=== PATIENT | female | born 1960 | race African-American/Black ===

== ENCOUNTER → 2020-10-20 | Outpatient (CLI) | payer BC ==
[2020-10-20 16:17] LABS: ALBUMIN 3.9 GM/DL (3.2-5.2); ALT/SGPT 36 U/L (12-78); BILIRUBIN,DIRECT < 0.1 MG/DL (0.0-0.2); BILIRUBIN,TOTAL 0.2 MG/DL (0.2-1.0); TOTAL PROTEIN 6.7 GM/DL (6.4-8.2)
[2020-10-20 16:31] LABS: EOS # 0.3 10^3/uL (0.0-0.5); EOS % 6.8 % (0.0-3.0); HEMATOCRIT 37.7 % (36.0-47.0); HEMOGLOBIN 11.8 g/dl (12.0-15.5); LYMPH # 1.8 10^3/uL (1.5-5.0); LYMPH % 47.7 % (24.0-44.0); MEAN CORPUSCULAR HEMOGLOBIN 29.3 pg (27.0-33.0); MEAN CORPUSCULAR HGB CONC 31.3 g/dl (32.0-36.5); MEAN CORPUSCULAR VOLUME 93.5 fl (80.0-96.0); MONO # 0.3 10^3/uL (0.0-0.8); MONO % 6.8 % (2.0-8.0); NEUTROPHILS # 1.5 10^3/uL (1.5-8.5); NEUTROPHILS % 37.7 % (36.0-66.0); PLATELET COUNT, AUTOMATED 159 10^3/uL (150-450); RED BLOOD COUNT 4.03 10^6/uL (4.00-5.40); WHITE BLOOD COUNT 3.8 10^3/uL (4.0-10.0)
== END ==
LOC: M WUC 10:13
PROVIDERS: ATTEND Podiatrist Foot & Ankle Surgery
DX: B35.1 Tinea unguium (principal)

== ENCOUNTER → 2021-12-21 | Outpatient (CLI) | payer BC ==
[2021-12-21 14:37] LABS: HEMATOCRIT 36.2 % (36.0-47.0); MEAN CORPUSCULAR HEMOGLOBIN 31.1 pg (27.0-33.0); MEAN CORPUSCULAR HGB CONC 33.1 g/dl (32.0-36.5); MEAN CORPUSCULAR VOLUME 93.8 fl (80.0-96.0); PLATELET COUNT, AUTOMATED 201 10^3/uL (150-450); RED BLOOD COUNT 3.86 10^6/uL (4.00-5.40); WHITE BLOOD COUNT 4.9 10^3/uL (4.0-10.0)
[2021-12-21 15:15] LABS: ALT/SGPT 32 U/L (12-78); BILIRUBIN,TOTAL 0.2 MG/DL (0.2-1.0); BLOOD UREA NITROGEN 16 MG/DL (7-18); CARBON DIOXIDE LEVEL 28 MEQ/L (21-32); CHLORIDE LEVEL 108 MEQ/L (98-107); CHOLESTEROL LEVEL 173 MG/DL (<200); CHOLESTEROL RISK RATIO 2.337 (<5); CREATININE FOR GFR 0.91 MG/DL (0.55-1.30); GLOMERULAR FILTRATION RATE > 60.0 (>45); GLUCOSE, FASTING 105 MG/DL (70-100); HDL CHOLESTEROL 74 MG/DL (>40); IRON (FE) 41 UG/DL (50-170); LDL CHOLESTEROL 85 MG/DL (<100); NON-HDL-C 99 MG/DL; PERCENT SATURATION 9.9 % (13.2-45.0); POTASSIUM SERUM 3.5 MEQ/L (3.5-5.1); SODIUM LEVEL 140 MEQ/L (136-145); THYROID STIMULATING HORMONE 0.563 uIU/ML (0.358-3.740); TOTAL IRON BINDING CAPACITY 416 UG/DL (250-450); TOTAL PROTEIN 6.7 GM/DL (6.4-8.2); TRIGLYCERIDES LEVEL 68 MG/DL (<150)
[2021-12-21 15:41] LABS: TOTAL 25(OH) VITAMIN D 44.4 NG/ML (30.0-100.0); VITAMIN B12 LEVEL > 2000 PG/ML (247-911)
[2021-12-21 16:01] LABS: HEMOGLOBIN A1c 5.5 %
== END ==
LOC: M WUC 11:22
PROVIDERS: ATTEND Family Medicine
DX: I10 Essential (primary) hypertension (principal); R53.83 Other fatigue; E03.9 Hypothyroidism, unspecified; D64.9 Anemia, unspecified

== ENCOUNTER 2022-07-28 10:19 | Inpatient (IN) | payer BC ==
[~2022-07-28] VITALS: Ht 152.4 cm; Wt 54.5 kg
[2022-07-28] MEDS ORDERED: NS 1,000 ML IV ONE ×2 (10:45→17:00)
[2022-07-28] MEDS ORDERED: LORazepam 2 MG/ML 1ML VIAL IV STA ×2 (11:04→11:20)
[2022-07-28 11:05] LABS: BASO % 0.5 % (0.0-1.0); EOS # 0.1 10^3/uL (0.0-0.5); HEMATOCRIT 39.2 % (36.0-47.0); HEMOGLOBIN 12.3 g/dl (12.0-15.5); LYMPH # 0.8 10^3/uL (1.5-5.0); LYMPH % 12.9 % (24.0-44.0); MEAN CORPUSCULAR HEMOGLOBIN 27.6 pg (27.0-33.0); MEAN CORPUSCULAR HGB CONC 31.4 g/dl (32.0-36.5); MEAN CORPUSCULAR VOLUME 88.1 fl (80.0-96.0); MONO # 0.2 10^3/uL (0.0-0.8); MONO % 4.1 % (2.0-8.0); NEUTROPHILS # 4.8 10^3/uL (1.5-8.5); PLATELET COUNT, AUTOMATED 284 10^3/uL (150-450); RED BLOOD COUNT 4.45 10^6/uL (4.00-5.40); WHITE BLOOD COUNT 5.9 10^3/uL (4.0-10.0)
[2022-07-28] MEDS ORDERED: THIAMINE 200MG 2ML VIAL IV ONE (11:10)
[2022-07-28 11:16] LABS: INR 0.84; PROTHROMBIN TIME 11.7 SECONDS (12.5-14.5)
[2022-07-28 11:17] LABS: PARTIAL THROMBOPLASTIN TIME 27.8 SECONDS (24.8-34.2)
[2022-07-28 11:35] LABS: ETHYL ALCOHOL (ETHANOL) 0.005 % (0.000-0.010); LIPASE 22 U/L (12-53)
[2022-07-28 11:37] LABS: CK-MB VALUE MASS < 1.0 NG/ML (<3.6); CPK CREATINE PHOSPHOKINASE 57 U/L (34-145); MB/CK RELATIVE INDEX 1.75 (< OR =4); SALICYLATE LEVEL < 3.0 MG/DL (<30)
[2022-07-28 11:38] LABS: ACETAMINOPHEN LEVEL < 2.0 UG/ML (10.0-20.0); ALBUMIN 4.1 G/DL (3.2-5.2); ALKALINE PHOSPHATASE 86 U/L (46-116); ALT/SGPT 18 U/L (7.0-40); AST/SGOT 14 U/L (<34); BILIRUBIN,DIRECT < 0.1 MG/DL (<0.4); BILIRUBIN,TOTAL 0.3 MG/DL (0.3-1.2); BLOOD UREA NITROGEN 15 MG/DL (9-23); CARBON DIOXIDE LEVEL 21 MMOL/L (20-31); CHLORIDE LEVEL 108 MMOL/L (98-107); CREATININE FOR GFR 0.99 MG/DL (0.55-1.30); GLOMERULAR FILTRATION RATE > 60.0 (>45); GLUCOSE, FASTING 142 MG/DL (74-106); MAGNESIUM LEVEL 1.8 MG/DL (1.8-2.4); POTASSIUM SERUM 3.7 MMOL/L (3.5-5.1); SODIUM LEVEL 139 MMOL/L (136-145); TOTAL PROTEIN 6.8 G/DL (5.7-8.2)
[2022-07-28] MEDS ORDERED: ONDANSETRON 4MG 2ML VIAL IV ONE (13:20)
[2022-07-28] MEDS ORDERED: LORazepam 2 MG TAB PO PRN (13:20)
[2022-07-28] MEDS ORDERED: RISP-8 PO (13:32)
[2022-07-28] MEDS ORDERED: ERGO500029 PO (13:32)
[2022-07-28] MEDS ORDERED: TIZA10TA PO (13:32)
[2022-07-28] MEDS ORDERED: TOPI-254 PO (13:32)
[2022-07-28] MEDS ORDERED: PREG200C PO (13:32)
[2022-07-28] MEDS ORDERED: FERR324T21 PO (13:32)
[2022-07-28] MEDS ORDERED: MIRT-11 PO (13:32)
[2022-07-28] MEDS ORDERED: SPIR-10 PO (13:32)
[2022-07-28] MEDS ORDERED: ZOLO100T PO (13:32)
[2022-07-28] MEDS ORDERED: BUSP15TA47 PO (13:32)
[2022-07-28] MEDS ORDERED: CLON1TAB8 PO (13:32)
[2022-07-28] MEDS ORDERED: HYDR-3719 PO (13:32)
[2022-07-28] MEDS ORDERED: PRAV40TA2 PO (13:32)
[2022-07-28] MEDS ORDERED: OMEP-173 PO (13:32)
[2022-07-28] MEDS ORDERED: HOME MED LIST COMPLETE! XX SCH (13:35)
[2022-07-28 13:51] LABS: RSV AMPLIFICATION NEGATIVE (NEGATIVE)
[2022-07-28 14:06] LABS: AMPHETAMINES LEVEL URINE NEGATIVE (NEGATIVE); BARBITURATES URINE NEGATIVE (NEGATIVE); COCAINE METABOLITE URINE NEGATIVE (NEGATIVE); METHADONE URINE NEGATIVE (NEGATIVE); OPIATES URINE NEGATIVE (NEGATIVE); PHENCYCLIDINE URINE NEGATIVE (NEGATIVE)
[2022-07-28 14:07] LABS: BENZODIAZEPINES URINE POSITIVE (NEGATIVE); CANNABINOIDS URINE POSITIVE (NEGATIVE)
[2022-07-28] MEDS ORDERED: ONDANSETRON 4MG 2ML VIAL IV PRN (14:40)
[2022-07-28] MEDS ORDERED: OXAZEPAM 10MG CAP PO ONE (14:40)
[2022-07-28] MEDS ORDERED: MULTIVITAMIN -ADULT INJECTION 10 ML, THIAMINE INJection 100 MG, FOLIC ACID 1 MG in NS 1... IV ONE (17:00)
[2022-07-28] MEDS: OXAZEPAM 15MG CAP PO SCH ×2 (17:28→23:24)
[2022-07-28 17:40] VITALS: BP 120/75
[2022-07-28 17:57] VITALS: BP 120/75
[2022-07-28] MEDS: PRAVASTATIN 20 MG TAB PO SCH (18:15)
[2022-07-28] MEDS: SERTRALINE 100 MG TAB PO SCH (18:16)
[2022-07-28] MEDS: SPIRONOLACTONE 25 MG TAB PO SCH (18:16)
[2022-07-28] MEDS: busPIRone 5 MG TAB PO SCH ×2 (18:16→20:28)
[2022-07-28] MEDS: FERROUS GLUCONATE 324 MG TAB PO SCH (18:28)
[2022-07-28 18:58] VITALS: BP 100/70
[2022-07-28 20:00] VITALS: BP 124/78
[2022-07-28] MEDS: TOPIRAMATE (TopAMAX) 25 MG TAB PO SCH (20:28)
[2022-07-28] MEDS: risperiDONE 1 MG TAB PO SCH (20:28)
[2022-07-28] MEDS: PREGABALIN 100 MG CAP (LYRICA) PO SCH (20:28)
[2022-07-28] MEDS: MIRTAZAPINE 15 MG TAB PO SCH (20:29)
[2022-07-28] MEDS: OMEPRAZOLE 20MG CAP PO SCH (20:29)
[2022-07-28] MEDS ORDERED: PANTOPRAZOLE 40MG TAB (PROTONIX) PO SCH (21:00)
[2022-07-28] MEDS ORDERED: THIAMINE 100 MG TAB PO SCH (21:00)
[2022-07-28 22:00] VITALS: BP_SYST 116; BP_SYST 124; BP_DIAS 73; BP_DIAS 78
[2022-07-29] VITALS (7 sets, daily range): BP systolic 113–143; BP diastolic 62–91
[2022-07-29] MEDS: OXAZEPAM 15MG CAP PO SCH ×4 (05:31→23:48)
[2022-07-29 07:14] LABS: BASO % 0.6 % (0.0-1.0); EOS # 0.1 10^3/uL (0.0-0.5); EOS % 1.9 % (0.0-3.0); HEMATOCRIT 33.9 % (36.0-47.0); HEMOGLOBIN 10.8 g/dl (12.0-15.5); LYMPH # 1.2 10^3/uL (1.5-5.0); LYMPH % 25.6 % (24.0-44.0); MEAN CORPUSCULAR HEMOGLOBIN 28.1 pg (27.0-33.0); MEAN CORPUSCULAR HGB CONC 31.9 g/dl (32.0-36.5); MEAN CORPUSCULAR VOLUME 88.1 fl (80.0-96.0); MONO # 0.3 10^3/uL (0.0-0.8); MONO % 6.1 % (2.0-8.0); NEUTROPHILS # 3.1 10^3/uL (1.5-8.5); NEUTROPHILS % 65.2 % (36.0-66.0); PLATELET COUNT, AUTOMATED 222 10^3/uL (150-450); RED BLOOD COUNT 3.85 10^6/uL (4.00-5.40); WHITE BLOOD COUNT 4.8 10^3/uL (4.0-10.0)
[2022-07-29 07:41] LABS: BLOOD UREA NITROGEN 9 MG/DL (9-23); CALCIUM LEVEL 8.2 MG/DL (8.3-10.6); CARBON DIOXIDE LEVEL 20 MMOL/L (20-31); CHLORIDE LEVEL 114 MMOL/L (98-107); CREATININE FOR GFR 0.77 MG/DL (0.55-1.30); GLOMERULAR FILTRATION RATE > 60.0 (>45); GLUCOSE, FASTING 100 MG/DL (74-106); POTASSIUM SERUM 3.8 MMOL/L (3.5-5.1); SODIUM LEVEL 144 MMOL/L (136-145)
[2022-07-29] MEDS ORDERED: MULTIVITAMINS/MINERALS THERAP 1 TAB PO SCH (09:00)
[2022-07-29] MEDS ORDERED: FOLIC ACID 1MG TAB PO SCH (09:00)
[2022-07-29] MEDS: PREGABALIN 100 MG CAP (LYRICA) PO SCH ×2 (09:22→20:07)
[2022-07-29] MEDS: TOPIRAMATE (TopAMAX) 25 MG TAB PO SCH ×2 (09:22→20:07)
[2022-07-29] MEDS: LORazepam 2 MG TAB PO PRN (09:22)
[2022-07-29] MEDS: THIAMINE 100 MG TAB PO SCH ×2 (09:22→20:08)
[2022-07-29] MEDS: PRAVASTATIN 20 MG TAB PO SCH (09:22)
[2022-07-29] MEDS: OMEPRAZOLE 20MG CAP PO SCH ×2 (09:22→20:07)
[2022-07-29] MEDS: SPIRONOLACTONE 25 MG TAB PO SCH (09:22)
[2022-07-29] MEDS: FOLIC ACID 1MG TAB PO SCH (09:22)
[2022-07-29] MEDS: MULTIVITAMINS/MINERALS THERAP 1 TAB PO SCH (09:22)
[2022-07-29] MEDS: busPIRone 5 MG TAB PO SCH ×3 (09:23→20:06)
[2022-07-29] MEDS: FERROUS GLUCONATE 324 MG TAB PO SCH (09:23)
[2022-07-29] MEDS: SERTRALINE 100 MG TAB PO SCH (09:23)
[2022-07-29] MEDS: MIRTAZAPINE 15 MG TAB PO SCH (20:07)
[2022-07-29] MEDS: risperiDONE 1 MG TAB PO SCH (20:08)
[2022-07-30] VITALS (8 sets, daily range): BP systolic 113–146; BP diastolic 71–101
[2022-07-30] MEDS: OXAZEPAM 15MG CAP PO SCH ×3 (05:20→21:52)
[2022-07-30 06:43] LABS: BASO % 0.3 % (0.0-1.0); EOS # 0.1 10^3/uL (0.0-0.5); EOS % 1.7 % (0.0-3.0); HEMATOCRIT 32.6 % (36.0-47.0); HEMOGLOBIN 10.5 g/dl (12.0-15.5); LYMPH # 1.6 10^3/uL (1.5-5.0); LYMPH % 24.1 % (24.0-44.0); MEAN CORPUSCULAR HEMOGLOBIN 28.3 pg (27.0-33.0); MEAN CORPUSCULAR HGB CONC 32.2 g/dl (32.0-36.5); MEAN CORPUSCULAR VOLUME 87.9 fl (80.0-96.0); MONO # 0.5 10^3/uL (0.0-0.8); NEUTROPHILS # 4.4 10^3/uL (1.5-8.5); NEUTROPHILS % 66.3 % (36.0-66.0); PLATELET COUNT, AUTOMATED 243 10^3/uL (150-450); RED BLOOD COUNT 3.71 10^6/uL (4.00-5.40); WHITE BLOOD COUNT 6.6 10^3/uL (4.0-10.0)
[2022-07-30 07:10] LABS: BLOOD UREA NITROGEN 12 MG/DL (9-23); CALCIUM LEVEL 8.7 MG/DL (8.3-10.6); CARBON DIOXIDE LEVEL 24 MMOL/L (20-31); CHLORIDE LEVEL 111 MMOL/L (98-107); CREATININE FOR GFR 0.68 MG/DL (0.55-1.30); GLOMERULAR FILTRATION RATE > 60.0 (>45); GLUCOSE, FASTING 104 MG/DL (74-106); POTASSIUM SERUM 3.2 MMOL/L (3.5-5.1); SODIUM LEVEL 144 MMOL/L (136-145)
[2022-07-30] MEDS: OMEPRAZOLE 20MG CAP PO SCH ×2 (08:11→20:08)
[2022-07-30] MEDS: SERTRALINE 100 MG TAB PO SCH (08:11)
[2022-07-30] MEDS: PREGABALIN 100 MG CAP (LYRICA) PO SCH ×2 (08:11→20:08)
[2022-07-30] MEDS: busPIRone 5 MG TAB PO SCH ×3 (08:11→20:09)
[2022-07-30] MEDS: TOPIRAMATE (TopAMAX) 25 MG TAB PO SCH ×2 (08:11→20:09)
[2022-07-30] MEDS: FERROUS GLUCONATE 324 MG TAB PO SCH (08:11)
[2022-07-30] MEDS: PRAVASTATIN 20 MG TAB PO SCH (08:11)
[2022-07-30] MEDS: MULTIVITAMINS/MINERALS THERAP 1 TAB PO SCH (08:11)
[2022-07-30] MEDS: FOLIC ACID 1MG TAB PO SCH (08:12)
[2022-07-30] MEDS: THIAMINE 100 MG TAB PO SCH ×2 (08:12→20:08)
[2022-07-30] MEDS: SPIRONOLACTONE 25 MG TAB PO SCH (08:12)
[2022-07-30] MEDS ORDERED: POTASSIUM CHLORIDE 10MEQ SR TABLET PO ONE (08:30)
[2022-07-30] MEDS ORDERED: THIA100TA PO (11:02)
[2022-07-30] MEDS ORDERED: LORA2TA PO (11:02)
[2022-07-30] MEDS ORDERED: OXAZ15CA4 PO (11:02)
[2022-07-30] MEDS ORDERED: FOLI1TAB11 PO (11:02)
[2022-07-30] MEDS: LORazepam 2 MG TAB PO PRN ×2 (11:05→13:11)
[2022-07-30] MEDS: risperiDONE 1 MG TAB PO SCH (20:08)
[2022-07-30] MEDS: MIRTAZAPINE 15 MG TAB PO SCH (20:08)
[2022-07-31] MEDS: OXAZEPAM 15MG CAP PO SCH ×2 (05:39→14:45)
[2022-07-31 06:00] VITALS: BP 121/88
[2022-07-31 06:12] VITALS: BP 121/88
[2022-07-31 06:13] LABS: BASO % 0.6 % (0.0-1.0); EOS # 0.1 10^3/uL (0.0-0.5); EOS % 2.5 % (0.0-3.0); HEMATOCRIT 33.1 % (36.0-47.0); HEMOGLOBIN 10.6 g/dl (12.0-15.5); LYMPH # 1.4 10^3/uL (1.5-5.0); LYMPH % 28.4 % (24.0-44.0); MEAN CORPUSCULAR HEMOGLOBIN 28.1 pg (27.0-33.0); MEAN CORPUSCULAR VOLUME 87.8 fl (80.0-96.0); MONO # 0.4 10^3/uL (0.0-0.8); MONO % 7.7 % (2.0-8.0); NEUTROPHILS # 2.9 10^3/uL (1.5-8.5); NEUTROPHILS % 60.4 % (36.0-66.0); PLATELET COUNT, AUTOMATED 242 10^3/uL (150-450); RED BLOOD COUNT 3.77 10^6/uL (4.00-5.40); WHITE BLOOD COUNT 4.8 10^3/uL (4.0-10.0)
[2022-07-31 06:48] LABS: BLOOD UREA NITROGEN 16 MG/DL (9-23); CALCIUM LEVEL 8.5 MG/DL (8.3-10.6); CARBON DIOXIDE LEVEL 22 MMOL/L (20-31); CHLORIDE LEVEL 110 MMOL/L (98-107); CREATININE FOR GFR 0.58 MG/DL (0.55-1.30); GLOMERULAR FILTRATION RATE > 60.0 (>45); GLUCOSE, FASTING 114 MG/DL (74-106); POTASSIUM SERUM 3.7 MMOL/L (3.5-5.1); SODIUM LEVEL 142 MMOL/L (136-145)
[2022-07-31] MEDS: FERROUS GLUCONATE 324 MG TAB PO SCH (08:25)
[2022-07-31] MEDS: busPIRone 5 MG TAB PO SCH ×2 (08:25→15:56)
[2022-07-31] MEDS: SERTRALINE 100 MG TAB PO SCH (08:25)
[2022-07-31] MEDS: FOLIC ACID 1MG TAB PO SCH (08:25)
[2022-07-31] MEDS: THIAMINE 100 MG TAB PO SCH (08:25)
[2022-07-31] MEDS: TOPIRAMATE (TopAMAX) 25 MG TAB PO SCH (08:26)
[2022-07-31] MEDS: SPIRONOLACTONE 25 MG TAB PO SCH (08:26)
[2022-07-31] MEDS: LORazepam 2 MG TAB PO PRN (08:26)
[2022-07-31] MEDS: PREGABALIN 100 MG CAP (LYRICA) PO SCH (08:26)
[2022-07-31] MEDS: OMEPRAZOLE 20MG CAP PO SCH (08:26)
[2022-07-31] MEDS: MULTIVITAMINS/MINERALS THERAP 1 TAB PO SCH (08:26)
[2022-07-31] MEDS: PRAVASTATIN 20 MG TAB PO SCH (08:26)
[2022-07-31 10:00] VITALS: BP 121/89
== END 2022-07-31 16:40 | DRG 775 ==
LOC: M ED 10:19 → M ED INP 14:38 → M MSPAV 17:39
PROVIDERS: ADMIT Internal Medicine Nephrology; ATTEND Internal Medicine
DX: F10.239 Alcohol dependence with withdrawal, unspecified (principal); F32.A Depression, unspecified; F41.1 Generalized anxiety disorder; F43.10 Post-traumatic stress disorder, unspecified; E78.5 Hyperlipidemia, unspecified; F43.81 Prolonged grief disorder; K21.9 Gastro-esophageal reflux disease without esophagitis; Z83.3 Family history of diabetes mellitus; F17.290 Nicotine dependence, other tobacco product, uncomplicated; Z79.899 Other long term (current) drug therapy; Z20.822 Contact with and (suspected) exposure to COVID-19; Z98.84 Bariatric surgery status; Z90.79 Acquired absence of other genital organ(s); Z90.49 Acquired absence of other specified parts of digestive tract

== ENCOUNTER 2022-07-31 14:17 | Inpatient (IN) | payer BC ==
[~2022-07-31] VITALS: Ht 152.4 cm; Wt 54.5 kg
[~2022-07-31 14:17] MED LIST: BUSP15TA47 PO; CLON1TAB8 PO; ERGO500029 PO; FERR324T21 PO; FOLI1TAB11 PO; HYDR-3719 PO; LORA2TA PO; MIRT-11 PO; OMEP-173 PO; OXAZ15CA4 PO; PRAV40TA2 PO; PREG200C PO; RISP-8 PO; SPIR-10 PO; THIA100TA PO; TIZA10TA PO; TOPI-254 PO; ZOLO100T PO
[2022-07-31] MEDS ORDERED: traZODone 50 MG TAB PO PRN (14:55)
[2022-07-31] MEDS ORDERED: MAALOX 30 ML SUSP *UDC PO PRN (14:55)
[2022-07-31] MEDS ORDERED: ACETAMINOPHEN TAB 650MG DOSE (2X325MG) PO PRN (14:55)
[2022-07-31] MEDS ORDERED: MOM 30ML SUSPENSION UDC PO PRN (14:55)
[2022-07-31] MEDS ORDERED: HOME MED LIST COMPLETE! XX SCH (15:20)
[2022-07-31 17:13] VITALS: BP 115/72
[2022-07-31] MEDS: NICOTINE 21MG/24HR 1 EA TRANSDERMAL TD SCH (18:09)
[2022-07-31] MEDS: OLANZapine ORAL DISINTEGRATING TAB 5MG PO PRN (18:14)
[2022-07-31] MEDS: busPIRone 5 MG TAB PO SCH (20:20)
[2022-07-31] MEDS: TOPIRAMATE (TopAMAX) 25 MG TAB PO SCH (20:21)
[2022-07-31] MEDS: PREGABALIN 100 MG CAP (LYRICA) PO SCH (20:21)
[2022-07-31] MEDS: THIAMINE 100 MG TAB PO SCH (20:21)
[2022-07-31] MEDS: OMEPRAZOLE 20MG CAP PO SCH (20:21)
[2022-07-31] MEDS ORDERED: risperiDONE 1 MG TAB PO SCH (21:00)
[2022-07-31] MEDS: MIRTAZAPINE 15 MG TAB PO SCH (21:12)
[2022-07-31] MEDS: OXAZEPAM 15MG CAP PO SCH (21:12)
[2022-08-01] MEDS: OXAZEPAM 15MG CAP PO SCH ×3 (06:13→21:38)
[2022-08-01 06:43] VITALS: BP 149/90
[2022-08-01] MEDS: SPIRONOLACTONE 25 MG TAB PO SCH (08:44)
[2022-08-01] MEDS: FERROUS SULFATE 325MG TAB PO SCH (08:45)
[2022-08-01] MEDS: PREGABALIN 100 MG CAP (LYRICA) PO SCH ×2 (08:45→20:21)
[2022-08-01] MEDS: SERTRALINE 100 MG TAB PO SCH (08:45)
[2022-08-01] MEDS: busPIRone 5 MG TAB PO SCH ×3 (08:45→20:22)
[2022-08-01] MEDS: FOLIC ACID 1MG TAB PO SCH (08:45)
[2022-08-01] MEDS: OMEPRAZOLE 20MG CAP PO SCH ×2 (08:45→20:22)
[2022-08-01] MEDS: NICOTINE 21MG/24HR 1 EA TRANSDERMAL TD SCH (08:46)
[2022-08-01] MEDS: TOPIRAMATE (TopAMAX) 25 MG TAB PO SCH ×2 (08:47→20:22)
[2022-08-01] MEDS: THIAMINE 100 MG TAB PO SCH (08:47)
[2022-08-01] MEDS: PRAVASTATIN 20 MG TAB PO SCH (10:04)
[2022-08-01] MEDS ORDERED: tiZANidine 4 MG TAB PO PRN (13:40)
[2022-08-01] MEDS: NORCO, ANEXSIA 5/325MG TABLET (HYDROcodone/ACETAMINOPHEN) PO PRN ×2 (14:13→20:22)
[2022-08-01 16:22] VITALS: BP 138/90
[2022-08-01] MEDS: risperiDONE 2 MG TAB PO SCH (21:38)
[2022-08-01] MEDS: MIRTAZAPINE 15 MG TAB PO SCH (21:38)
[2022-08-02 05:49] VITALS: BP 125/73
[2022-08-02] MEDS: OXAZEPAM 15MG CAP PO SCH ×3 (05:58→21:52)
[2022-08-02] MEDS: THIAMINE 100 MG TAB PO SCH (08:28)
[2022-08-02] MEDS: FOLIC ACID 1MG TAB PO SCH (08:28)
[2022-08-02] MEDS: TOPIRAMATE (TopAMAX) 25 MG TAB PO SCH ×2 (08:28→21:53)
[2022-08-02] MEDS: SERTRALINE 100 MG TAB PO SCH (08:29)
[2022-08-02] MEDS: SPIRONOLACTONE 25 MG TAB PO SCH (08:29)
[2022-08-02] MEDS: FERROUS SULFATE 325MG TAB PO SCH (08:29)
[2022-08-02] MEDS: busPIRone 5 MG TAB PO SCH ×3 (08:30→21:53)
[2022-08-02] MEDS: PRAVASTATIN 20 MG TAB PO SCH (08:30)
[2022-08-02] MEDS: OMEPRAZOLE 20MG CAP PO SCH ×2 (08:30→21:53)
[2022-08-02] MEDS: OLANZapine ORAL DISINTEGRATING TAB 5MG PO PRN (08:31)
[2022-08-02] MEDS: PREGABALIN 100 MG CAP (LYRICA) PO SCH ×2 (08:31→21:53)
[2022-08-02] MEDS: NICOTINE 21MG/24HR 1 EA TRANSDERMAL TD SCH (08:34)
[2022-08-02] MEDS: NORCO, ANEXSIA 5/325MG TABLET (HYDROcodone/ACETAMINOPHEN) PO PRN ×2 (17:13→23:21)
[2022-08-02 18:14] VITALS: BP 135/85
[2022-08-02] MEDS: MIRTAZAPINE 15 MG TAB PO SCH (21:53)
[2022-08-02] MEDS: risperiDONE 2 MG TAB PO SCH (21:53)
[2022-08-03 07:11] VITALS: BP 131/82
[2022-08-03] MEDS: TOPIRAMATE (TopAMAX) 25 MG TAB PO SCH (08:31)
[2022-08-03] MEDS: OMEPRAZOLE 20MG CAP PO SCH (08:32)
[2022-08-03] MEDS: busPIRone 5 MG TAB PO SCH (08:32)
[2022-08-03] MEDS: FOLIC ACID 1MG TAB PO SCH (08:32)
[2022-08-03] MEDS: SERTRALINE 100 MG TAB PO SCH (08:33)
[2022-08-03] MEDS: FERROUS SULFATE 325MG TAB PO SCH (08:33)
[2022-08-03] MEDS: PREGABALIN 100 MG CAP (LYRICA) PO SCH (08:33)
[2022-08-03] MEDS: THIAMINE 100 MG TAB PO SCH (08:33)
[2022-08-03] MEDS: PRAVASTATIN 20 MG TAB PO SCH (08:34)
[2022-08-03] MEDS: SPIRONOLACTONE 25 MG TAB PO SCH (08:34)
[2022-08-03] MEDS: OLANZapine ORAL DISINTEGRATING TAB 5MG PO PRN (08:34)
[2022-08-03] MEDS: NICOTINE 21MG/24HR 1 EA TRANSDERMAL TD SCH (08:37)
[2022-08-03] MEDS ORDERED: RISP-9 PO (09:16)
[2022-08-03] MEDS: NORCO, ANEXSIA 5/325MG TABLET (HYDROcodone/ACETAMINOPHEN) PO PRN (09:21)
[2022-08-03] MEDS ORDERED: hydrOXYzine 50 MG TAB PO ONE (11:00)
[2022-08-03] MEDS ORDERED: HYDR1TAB33 PO (12:46)
== END 2022-08-03 12:36 | disposition home or self-care (01) | DRG 754 ==
LOC: M ED INP 14:53 → M PSY 16:44
PROVIDERS: ADMIT Psychiatry & Neurology Psychiatry; ATTEND Psychiatry & Neurology Psychiatry
DX: F32.9 Major depressive disorder, single episode, unspecified (principal); F40.01 Agoraphobia with panic disorder; F90.9 Attention-deficit hyperactivity disorder, unspecified type; F10.14 Alcohol abuse with alcohol-induced mood disorder; F43.10 Post-traumatic stress disorder, unspecified; F17.290 Nicotine dependence, other tobacco product, uncomplicated; H81.10 Benign paroxysmal vertigo, unspecified ear; D50.9 Iron deficiency anemia, unspecified; E78.5 Hyperlipidemia, unspecified; G89.29 Other chronic pain; M54.9 Dorsalgia, unspecified; K21.9 Gastro-esophageal reflux disease without esophagitis; I10 Essential (primary) hypertension; Z63.5 Disruption of family by separation and divorce; Z90.79 Acquired absence of other genital organ(s); Z56.0 Unemployment, unspecified; Z83.3 Family history of diabetes mellitus; Z63.8 Other specified problems related to primary support group; Z91.410 Personal history of adult physical and sexual abuse; Z79.899 Other long term (current) drug therapy; Z90.49 Acquired absence of other specified parts of digestive tract; Z98.84 Bariatric surgery status

== ENCOUNTER 2022-10-17 04:54 | Emergency (ER) | payer BC ==
[~2022-10-17] VITALS: Ht 152.4 cm; Wt 54.5 kg
[~2022-10-17 04:54] MED LIST changes: +HYDR1TAB33 PO; +RISP-9 PO
[2022-10-17 04:55] VITALS: BP 142/98; TEMP 98; O2SAT 98
== END 2022-10-17 05:59 | disposition left against medical advice (07) ==
LOC: M ED 04:54
DX: Z53.21 Procedure and treatment not carried out due to patient leaving prior to being seen by health care provider (principal)